=== PATIENT | female | born 1990 ===

== ENCOUNTER 2016-09-28 15:19 | Inpatient (IN) ==
[2016-09-28] MEDS ORDERED: ONDANSETRON 4 MG/2 ML VIAL IV PRN (15:41)
[2016-09-28] MEDS ORDERED: LACTATED RINGERS 500 ML IV PRN (15:41)
[2016-09-28] MEDS ORDERED: DINOPROSTONE VAG GEL 10 MG SYRINGE VAG ONE (15:42)
[2016-09-28 15:55] LABS: Basophils % 0.2 % (0.0-0.8); Eosinophils # 0.2 10*3/uL (0.0-0.87); Eosinophils % 1.8 % (0.00-10.9); Hematocrit 38.8 VOL% (35.7-47.0); Hemoglobin 12.9 GM/DL (12.0-16.0); Immature Granulocytes % 0.6 %; Immature Granulocytes Absolute 0.06 #; Lymphocytes # 1.7 10*3/uL (1.4-4.0); Lymphocytes % 17.2 % (21.3-54.2); Mean Corpuscular HGB Conc 33.2 GM/DL (32-36); Mean Corpuscular Hemoglobin 28 PG (27-34); Mean Corpuscular Volume 83.3 FL (87-102); Mean Platelet Volume 11.9 FL (9.6-12.0); Monocytes # 0.6 10*3/uL (0.11-0.8); Monocytes % 6.4 % (1.7-12.7); Neutrophils # 7.4 10*3/uL (1.4-7.4); Neutrophils % 73.8 % (38.7-73.9); Platelet Count 166 T/CUMM (130-400); Red Blood Count 4.66 MC/CUMM (3.8-5.5); Red Cell Distribution Width 16.8 % (9.3-17.3)
[2016-09-28 16:24] LABS: Alanine Aminotransferase 19 U/L (13-56); Albumin 3.2 G/DL (3.4-5.0); Alkaline Phosphatase 138 U/L (45-117); Aspartate Amino Transferase 14 U/L (0-37); Bilirubin,Total < 0.39 MG/DL (0.2-1.0); Blood Urea Nitrogen 7 MG/DL (7-18); Glucose 71 MG/DL (74-106); Osmolality,Calculated 278.1 MOS/KG (273-304); Sodium 142 MMOL/L (136-145); Total Protein 6.6 G/DL (6.4-8.3); Uric Acid 3.8 MG/DL (2.6-6.0)
--- NOTE | 2016-09-28 16:30 | OB/GYN History & Physical ---
History of Present Illness Chief complaint: In for elective induction of labor History of present illness: Ms. Tijerina is a 26 year old female who is a primigravida. Her SELVIN is 2016 for an estimated gestational age of 39 weeks. The patient presents for elective induction of labor due to term . The risk and benefits been thoroughly discussed this patient and significant other and plan of care has been discussed with Dr. Pandya, all parties are in agreement with plan. The patient received [facility] and she received routine care, her course was uneventful. labs: The patient is a negative and she did receive tash RhoGam, RPR is nonreactive, hepatitis B negative, HIV negative, GC and chlamydia cultures negative, rubella is immune, GBS culture is negative. Review of systems is negative with exception of above. Allergies Allergy/AdvReac Type Severity Reaction Status Date / Time azithromycin Allergy Severe Swelling Verified 09/28/16 15:39 of Lip/Tongue/Throat Shrimp Allergy Severe Swelling Verified 09/28/16 15:39 of Lip/Tongue/Throat 12 point system: reviewed and no additional remarkable complaints except as stated Medical,Surgical,& Family Hx - Medical History Respiratory: History of: Asthma - Surgical History Surgical History: noncontributory - Family History Family History: Reports;: Family Cancer (Aunt with breast cancer), Family Heart Disease (Father), Family Hypertension (Father), Additional Family History (The patient's mom has a thyroid disease) - Social History Smoking Status: Former smoker Have you smoked in the last 12 months: Yes Marital Status: Lives With:: Spouse Functional capacity: independent ambulation Exam SOFTWARE ADMINISTRATOR - Constitutional General appearance: no acute distress - Antepartum / Post Antepartum Exam Cervix -Dilatation: 1 cm Effacement: 50% Station: -2 Rupture: Intact Presentation: Vertex Heart Rate: 140s-150s Abdomen obstetrics: Present: bowel sounds normal Uterus exam: Present: enlarged Anus/Rectum: Present: normal perianal skin - Head Head exam: Present: normal inspection - Respiratory Respiratory exam: Present: clear to auscultation bilaterally - Cardiovascular Cardiovascular exam: Present: regular rate and rhythm - GI/Abdominal GI/Abdominal exam: Present: normal bowel sounds, soft - Extremities Exam Extremities exam: Present: normal inspection - Neurological Exam Neurological exam: Present: alert, oriented X3 - Psychiatric Psychiatric exam: Present: normal affect, normal mood - Skin Skin exam: Present: normal color, warm Assessment and Plan (1) Term Status: Acute Assessment and plan: Admit Prostin gel per protocol IV Pitocin per protocol if indicated Artificial rupture membranes when appropriate Epidural anesthesia if desired Internal monitors if indicated Anticipate Current Visit: Yes Results - Labs CBC & BMP: 09/28/16 15:51 09/28/16 15:51
[2016-09-28] MEDS: LACTATED RINGERS 1,000 ML IV SCH (16:35)
[2016-09-28] MEDS ORDERED: OXYTOCIN/LR 20 UNIT/1,000 ML BAG IV SCH (19:30)
[2016-09-29] MEDS ORDERED: BUTORPHANOL 2 MG/ML VIAL IV PRN ×3 (02:39→05:16)
[2016-09-29] MEDS: LACTATED RINGERS 1,000 ML IV SCH ×2 (02:54→08:01)
[2016-09-29] MEDS ORDERED: FAMOTIDINE 20 MG/2 ML VIAL IV ONE (03:01)
[2016-09-29] MEDS ORDERED: CITRIC ACID/SODIUM CITRATE 30 ML UDCUP PO ONE (03:01)
[2016-09-29] MEDS ORDERED: ePHEDrine 50 MG/ML AMP ONE (06:38)
[2016-09-29] MEDS: fentaNYL 2 MCG/ROPIV 0.2% EPID 150 ML EPIDURAL SCH ×2 (08:30→15:22)
[2016-09-29 09:58] LABS: Apearance,Urine CLEAR (Clear); Bilirubin,Urine Negative (Negative); Blood, Urine Negative (Negative); Glucose,Urine (UA) Negative (Negative); Ketones,Urine 5 mg/dL (Negative); Mucus,Urine Occasional /LPF (Occasional); Nitrite,Urine Negative (Negative); Protein,Urine Negative; RBC,Urine 1 /HPF (0-4); Squamous Epithelial Cell,Urine Occasional /HPF (0-10); Urine Color Yellow (Yellow); Urine Urobilinogen < 2.0 EU/DL (0.2-1.0); WBC,Urine 2 /HPF (0-6)
--- NOTE | 2016-09-29 10:10 | Event Note ---
Artificial rupture membranes performed with clear fluid is noted. The patient is approximately 2 cm dilated 50% effaced and vertex is presenting a -2 station. She has an epidural and is comfortable. Her contractions are 2-3 minutes apart 50-60 seconds in duration. Will continue with IV Pitocin and plan. And anticipate a viable delivery of a liveborn infant.
[2016-09-29] MEDS ORDERED: fentaNYL 100 MCG/2 ML VIAL ONE ×2 (10:15→17:59)
[2016-09-29] MEDS ORDERED: OXYTOCIN/LR 30 UNIT/1,000 ML BAG IV ONE (17:08)
[2016-09-29] MEDS ORDERED: ceFAZolin 2,000 MG in PREMIX 1 EACH IV ONE (17:08)
[2016-09-29] MEDS ORDERED: OXYTOCIN 10 UNIT/ML VIAL IM ONE (17:08)
[2016-09-29] MEDS ORDERED: ONDANSETRON 4 MG/2 ML VIAL ONE (17:12)
[2016-09-29] MEDS ORDERED: LIDOCAINE 2%/EPI 20 ML VIAL ONE (17:12)
--- NOTE | 2016-09-29 17:17 | Ultrasound Report ---
US OB limited Indication: Estimate weight. Comparison: None. Technique: Using transabdominal probe, multiple grayscale, color Doppler, and M-mode Doppler images of the fetus were captured and stored. Findings: Single fetus with heart rate of 147 bpm is demonstrated. Amniotic fluid is low measuring 3.2 cm. Placenta is posterior. Measurements biparietal diameter 38 weeks 4 days, head circumference 38 weeks 2 days, abdominal circumference 41 weeks 3 days, femur length 37 weeks 0 days, results in an estimated composite gestational age of 38 weeks 6 days +/- 2 weeks 5 days. The estimated date of delivery is October 07, 2016. Estimated weight is 3900 g, growth percentile based on ultrasound of 84.1%. Impression: 1. Single fetus is present as detailed. Estimated weight is 3900 g. 09/29/2016 5:13 PM PROCEDURE INTERPRETED AT [facility] DEPARTMENT OF RADIOLOGY Final Report Signed by: Dr. Last Erickson
[2016-09-29] MEDS ORDERED: SIMETHICONE CHEW 80 MG TABLET PO PRN (17:53)
[2016-09-29] MEDS ORDERED: ONDANSETRON 4 MG/2 ML VIAL IV PRN (17:53)
[2016-09-29] MEDS ORDERED: RHO(D) IMMUNE GLOBULIN 300 MCG SYRINGE IM ONE (17:53)
[2016-09-29] MEDS ORDERED: ACETAMINOPHEN 325 MG TABLET PO PRN (17:53)
[2016-09-29] MEDS ORDERED: OXYTOCIN/LR 20 UNIT/1,000 ML BAG IV ONE (17:53)
[2016-09-29] MEDS ORDERED: MORPHINE 10 MG/10 ML VIAL ONE (17:58)
[2016-09-29 18:12] LABS: Cord Venous Blood HCO3 16.9 MMOL/L; Cord Venous Blood PCO2 54.2 MMHG; Cord Venous Blood PO2 17.2
[2016-09-29 18:13] LABS: Cord Arterial Blood HCO3 21.5 MMOL/L
[2016-09-29] MEDS ORDERED: HYDROmorphone 2 MG/1 ML VIAL IV PRN (18:38)
[2016-09-29] MEDS: DOCUSATE SODIUM 100 MG CAPSULE PO SCH (22:01)
[2016-09-29] MEDS: IBUPROFEN 800 MG TABLET PO PRN (22:01)
[2016-09-30] MEDS: LACTATED RINGERS 1,000 ML IV SCH
[2016-09-30] MEDS: IBUPROFEN 800 MG TABLET PO PRN ×2 (05:16→15:57)
[2016-09-30] MEDS: DOCUSATE SODIUM 100 MG CAPSULE PO SCH ×2 (09:00→21:30)
[2016-09-30] MEDS: MULTIVITAMIN (PRENATAL) TABLET PO SCH (09:00)
[2016-09-30 11:00] LABS: Basophils % 0.1 % (0.0-0.8); Eosinophils % 0.2 % (0.00-10.9); Hematocrit 35.5 VOL% (35.7-47.0); Hemoglobin 11.4 GM/DL (12.0-16.0); Immature Granulocytes % 0.5 %; Immature Granulocytes Absolute 0.05 #; Lymphocytes # 1.2 10*3/uL (1.4-4.0); Lymphocytes % 11.7 % (21.3-54.2); Mean Corpuscular HGB Conc 32.1 GM/DL (32-36); Mean Corpuscular Hemoglobin 28 PG (27-34); Mean Corpuscular Volume 85.7 FL (87-102); Mean Platelet Volume 12.2 FL (9.6-12.0); Monocytes # 0.5 10*3/uL (0.11-0.8); Monocytes % 4.7 % (1.7-12.7); Neutrophils # 8.5 10*3/uL (1.4-7.4); Neutrophils % 82.8 % (38.7-73.9); Platelet Count 140 T/CUMM (130-400); Red Blood Count 4.14 MC/CUMM (3.8-5.5); Red Cell Distribution Width 17.1 % (9.3-17.3); White Blood Count 10.3 T/CUMM (4-12)
[2016-09-30 11:19] LABS: Hypochromasia 1+; Lymphocytes 7 % (20-55); Microcytosis 1+; Platelet Estimate Adequate; Segmented Neutrophils 88 % (50-85); Total Cells Counted 100
--- NOTE | 2016-09-30 12:21 | OB/GYN Progress Note ---
Assessment and Plan (1) Term Status: Acute Assessment and plan: Admit Prostin gel per protocol IV Pitocin per protocol if indicated Artificial rupture membranes when appropriate Epidural anesthesia if desired Internal monitors if indicated Anticipate Current Visit: Yes (2) S/P primary low transverse Status: Acute Assessment and plan: Initiate routine postoperative orders. Current Visit: Yes DRYWALL TAPER - PN: Subj Interval history: Stable with no complaints. Bonding well with . Exam DRYWALL TAPER - Constitutional Vitals: Vital Signs Temp Pulse Resp BP Pulse Ox 09/30/16 04:00 97.7 F 66 18 133/60 09/30/16 01:29 18 09/29/16 23:52 98.1 F 76 18 116/62 09/29/16 22:52 97.5 F L 96 H 18 135/68 09/29/16 22:01 97.7 F 09/29/16 21:52 97.7 F 72 20 146/73 09/29/16 21:22 98.2 F 74 18 137/78 09/29/16 20:52 97.9 F 86 18 151/75 97 09/29/16 20:00 97.8 F 90 18 143/70 97 09/29/16 16:00 97.9 F 106 H 19 129/71 99 09/29/16 12:00 97.4 F L 76 18 124/71 97 General appearance: no acute distress - Antepartum / Post Post Exam Breast: bilateral: normal Abdomen obstetrics: Present: bowel sounds normal Vagina: Present: discharge (Light lochia rubra) Uterus exam: Present: enlarged (Fundus firm and midline) Anus/Rectum: Present: normal perianal skin - Gyencological / Post Surgical Post Surgical Exam Lungs: bilateral: normal Chest: Normal S1, Normal S2 Extremities DRYWALL TAPER: Present: normal Abdomen obstetrics progress note: Present: normal appearance Incision OB: Present: normal, intact - Head Head exam: Present: normal inspection - Respiratory Respiratory exam: Present: clear to auscultation bilaterally - Cardiovascular Cardiovascular exam: Present: regular rate and rhythm - GI/Abdominal GI/Abdominal exam: Present: normal bowel sounds, soft - Neurological Exam Neurological exam: Present: alert, oriented X3 - Psychiatric Psychiatric exam: Present: normal affect, normal mood - Skin Skin exam: Present: normal color, warm Results - Labs CBC & BMP: 05/23/17 15:51 09/28/16 15:51
--- NOTE | 2016-09-30 12:24 | Anesthesia Post-Op ---
Anesthesia Post OP - Post Ansesthetic Evaluation Patient seen in post op: Yes Resp: within normal limits CV: within normal limits Mental: within normal limits Temp: within normal limits [id number]: within normal limits Nausea and Vomiting: within normal limits Pain: within normal limits
[2016-09-30] MEDS ORDERED: RHO(D) IMMUNE GLOBULIN 300 MCG SYRINGE IM ONE (12:30)
[2016-09-30] MEDS: MAGNESIUM HYDROXIDE SUSP 30 ML UDCUP PO PRN (21:30)
[2016-10-01] MEDS: IBUPROFEN 800 MG TABLET PO PRN (01:14)
[2016-10-01] MEDS: LACTATED RINGERS 1,000 ML IV SCH (05:07)
[2016-10-01] MEDS: MAGNESIUM HYDROXIDE SUSP 30 ML UDCUP PO PRN (09:20)
[2016-10-01] MEDS: MULTIVITAMIN (PRENATAL) TABLET PO SCH (09:20)
[2016-10-01] MEDS: DOCUSATE SODIUM 100 MG CAPSULE PO SCH (09:20)
[2016-10-01 11:29] VITALS: BP 129/79
--- NOTE | 2016-10-01 13:09 | Discharge Summary ---
Hospital Course - Hospital Course Hospital Course: Mr. Tijerina presented for induction of labor due to term . She had a failed trial of labor. And subsequently delivered via . She had a viable with no complications. She has followed a normal postoperative course and she is doing well. Her incisions well approximated without signs of infection. Her bleeding is minimal with no odor. Her fundus is firm and midline. She is voiding without difficulty. Her vital signs and lab values are stable. She will be discharged home prescriptions for pain and follow-up appointment in our office. Diagnosis - Discharge Diagnosis (1) Term Status: Acute (2) S/P primary low transverse Status: Acute Specialty Discharge - Follow Up or Referrals Follow up with: Jeremy Pandya MD [Physician] - 10/14/16 10:00 am Discharge Plan - Discharge Data Disposition: Disch To Home/Self Care Condition at Discharge: Stable Discharge Diet: advance to your usual diet, regular diet Activity: increase activity as tolerated, no lifting, no prolonged standing Hygiene: may shower Weight Bearing at Discharge: weight bear as tolerated Driving: not until seen by doctor Contact your physician if you experience:: fever over 101, pain uncontrolled by pain medications - Discharge Medications New HYDROcodone/ACETAMIN 5-325 [[place] 5-325] 2 tablet PO Q6H PRN #30 tablet PRN Reason: Pain Severe (8-10) Ibuprofen Tab [Motrin Tab] 800 mg PO Q8H PRN #45 tablet PRN Reason: Pain Severe (8-10) No Action Multivitamin () [ Vitamin] 1 tablet PO DAILY - Follow Up or Referral Follow Up: Jeremy Pandya MD [Physician] - 10/14/16 10:00 am - Forms/Instructions Instructions: Hydrocodone/Acetaminophen (By mouth), Ibuprofen (By mouth), Section (DC), Depression (GEN), Surgical Site Infections ( GEN), Bleeding (DC) Exam - Constitutional Vitals: Period Temp Pulse Resp BP Sys/Mattson Pulse Ox Last 24 Hr 97.4 F-98.1 F 81-96 18-22 111-129/66-79 97-99 General appearance: no acute distress - Head Head exam: Present: normal inspection - Respiratory Respiratory exam: Present: clear to auscultation bilaterally - Cardiovascular Cardiovascular exam: Present: regular rate and rhythm - GI/Abdominal GI/Abdominal exam: Present: normal bowel sounds, soft - Extremities Exam Extremities exam: Present: normal inspection - Back Exam Back exam: Present: normal inspection - Neurological Exam Neurological exam: Present: alert, oriented X3 - Psychiatric Psychiatric exam: Present: normal affect, normal mood - Skin Skin exam: Present: normal color, warm DS: Provider Date of admission: 09/28/16 15:41 Attending physician on admission: Jeremy Pandya MD Consults: 09/28/16 15:41 Consult to Anesthesiology [CONS] Routine Consulting Provider: Reason for Anesthesiology: Epidural Consult Comment: Epidural for pain managment 09/29/16 17:54 Consult to Manufacturing Assembler [CONS] Routine Consult Manufacturing Assembler: Breast Feeding Discharging clinician: Simona Weinstein CNM Expected date of discharge: 10/01/16
[2016-10-01] MEDS ORDERED: DIPH/TET/ACEL PERT BOOSTER VACCINE 0.5 ML VIAL IM ONE (13:29)
== END 2016-10-01 14:45 | disposition home or self-care (01) | DRG 766 ==
LOC: N.LDOUT 15:19 → N.LD 15:24 → N.OB 09-30 10:07
PROVIDERS: ADMIT Obstetrics & Gynecology; ATTEND Obstetrics & Gynecology
PROC: LDCSECT (ICD-10-PCS; 2016-09-29 17:00)